=== PATIENT | female | born 1970 | race Caucasian/White ===

== ENCOUNTER 2016-09-26 08:43 | Emergency (ER) | payer BC ==
--- OUTSIDE RECORDS SUMMARY | 2016-09-26 08:59 | XMS REPORT | Continuity of Care Document ---
:1970 Author Organization [facility] ([facility]) Address [address] [place] [address] Phone [phone] Care Team Providers Name Role Phone Lore Hansen Primary Care Provider [phone] Source Comments This disclosure is being made pursuant to the Care Everywhere program, applicable federal and state laws, and may not contain all informaitonavailable regarding this patient.[facility] ([facility]) Active Allergies and Adverse Reactions No Known Allergies Current Medications Prescription Sig. Disp. Refills Start Date End Date Status citalopram 40 mg tablet Take 40 mg by mouth Active daily. ALPRAZolam 1 mg tablet Take 1 mg by mouth Active daily. Extended release beclomethasone (QVAR) 80 Use 1 Puff by Active mcg/Actuation inhaler inhalation 2 times daily. diphenhydrAMINE 25 mg Take 25 mg by mouth Active capsule at bedtime as needed. multivitamin with Take 1 Tab by mouth Active minerals tablet daily. albuterol 2.5 mg/3 mL Use 3 mL by Active inhalation solution inhalation every 4 hours as needed. 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 Social History Tobacco Use Types Packs/Day Years Used Date Former Smoker Quit: 05/26/2014 Smokeless Tobacco: Never Used Last Filed Vital Signs Vital Sign Reading Time Taken Blood Pressure 126/76 06/30/2014 10:57 AM [facility] [employer] Pulse 58 06/30/2014 10:57 AM [employer] Temperature 35.9 C (96.6 F) 06/30/2014 10:57 AM [employer] Respiratory Rate 16 08/31/2013 8:46 AM CDT Height 1.588 m (5' 2.5") 06/30/2014 10:57 AM [employer] Weight 66.724 kg (147 lb 1.6 oz) 06/30/2014 10:57 AM [employer] Body Mass Index 26.46 06/30/2014 10:57 AM [employer] Oxygen Saturation - - Plan of Care Health Maintenance Due Date Last Done Comments Hepatitis B Vaccine (1 of 3 - Primary Series) 1970 Tdap Vaccine 1981 Lipid Disorder Screening 02/09/1988 MMR Vaccine 02/09/1988 Td Vaccine 02/09/1988 Cervical Cancer Screening 02/09/2000 Mammogram 2010 Influenza Vaccine: Seasonal (#1) 12/25/2015 Results from Last 3 Months Not on file
[2016-09-26] MEDS ORDERED: ALBUTEROL SULFATE/IPRATROPIUM 3 ML NEBU IH ONE (09:01)
--- NOTE | 2016-09-26 09:07 | ERNOTE ---
Dyspnea - Date Date of Service: 09/26/16 - General Presenting Symptoms: shortness of breath Time Seen by Provider: 09/26/16 08:53 Source: patient Exam Limitations: no limitations - Immun/Allergies/Home Medications Immunizations: IMMUNIZATION HX History of Influenza Vaccine Yes Hx Pneumococcal Vaccination No Allergies/Adverse Reactions: Allergies No Known Allergies Allergy (Unverified 09/26/16 08:49) Home Medications: HOME MEDICATIONS ALPRAZolam [Xanax] 1 mg PO TID PRN 09/26/16 [Last Taken Unknown] Albuterol Sulfate [Ventolin HFA] 1 puff IH PRN PRN 09/26/16 [Last Taken Unknown] Amox Tr/Potassium Clavulanate [Augmentin 875-125 Tablet] 875 mg PO Q12H [Last Taken Unknown] Azithromycin [Zithromax] 500 mg PO NOW #6 tab 09/26/16 [Last Taken Unknown] Beclomethasone Dipropionate [Qvar] 8.7 gm IH BID 09/26/16 [Last Taken Unknown] Diclofenac Sodium [Voltaren] 75 mg PO BID 09/26/16 [Last Taken Unknown] Duloxetine HCl [Cymbalta] 60 mg PO DAILY 09/26/16 [Last Taken Unknown] Gabapentin 300 mg PO DAILY 09/26/16 [Last Taken Unknown] - History of Present Illness Narrative: Patient presents to the ED for SOB. She relates she has been sick for over 1 week with cough and SOB. She went to the walk in clinic and was started on ABx and prednisone 5 day burst but she still feels SOB. No fever. Cough with some productivity but no hemoptysis. SOB constant. CP with cough and at times without. Several hours of anterior continuous CP last night. No calf pain or leg swelling. Nothing really makes this better or worse. No ST. Severity: moderate Initiating event: Reports: unknown Frequency of episodes: Reports: no prior episodes Modifying Factors - (Improves): Reports: nothing Modifying Factors (Worsens): Denies: lying down Associated Symptoms-Dyspnea: Reports: chest pain/discomfort, cough, lightheadedness. Denies: fever/chills, leg/calf pain, ankle/leg swelling Prior Treatment: Reports: recently seen Review of Systems - Review of Systems Constitutional: Absent: fever ENT: Present: other - recent ear infection treated with Abx Respiratory: Present: See HPI Cardiology: Present: See HPI Gastrointestinal/Abdominal: Absent: abdominal pain Genitourinary: Absent: dysuria Neurological: Absent: weakness - Patient's Past Medical History Patient History - Medical: Depression, UTI'S Patient History - Cardiac/Respiratory: Asthma, Bronchitis, Pneumonia Patient History - Cancer: No Hx of Cancer Patient History - Surgical Procedures: Other Patient History - Other: None - Family History Mother Family History - Cancer: Kidney - Social History Living Situations: home Abuse History: No History of abuse Psych History: Hx of Anxiety, Hx of Depression Smoking Status: Never smoker Alcohol Use: rarely Drug Use: none - Immunizations Hx Pneumococcal Vaccination: No History of Influenza Vaccine: Yes Physical Exam - Physical Exam General Appearance: Present: alert, no apparent distress Eye Exam: Normal inspection: bilateral, PERRL: bilateral Ears, Nose, Throat: Present: normal ENT inspection, normal pharynx. Absent: nasal congestion, pharyngeal erythema, pharyngeal swelling Neck: Present: normal inspection Respiratory: Present: no respiratory distress, normal breath sounds, no accessory muscle use, lungs clear, chest tenderness, other - significant anterior chest tenderness to palpation. Left anterior chest wall. Harsh cough noted. Cardiovascular/Chest: Present: regular rate, rhythm, normal peripheral pulses Gastrointestinal/Abdominal: Present: normal bowel sounds, nontender, soft Back Exam: Present: normal range of motion Extremity Exam: Present: normal inspection, non-tender, no edema Skin Exam: Absent: skin rash ED Progress - Results and Orders Patient's Lab Results:: I have reviewed the patient's lab results. - Vital Signs Patient's Vital Signs:: I have reviewed the patient's vital signs. Vital Signs: Vital Signs 09/26/16 08:46 Temperature 36.4 C L Pulse Rate 92 Respiratory 18 Rate Blood Pressure 157/106 O2 Sat by Pulse 100 Oximetry - EKG EKG: NSR EKG read: Interp. by me EKG Comments: NSR rate 86. Non-specific ST/T wave changes. No STEMI. - X-Ray X-Ray #1 X-Ray: chest Interpretation: Reviewed by me X-ray Comments: Official radiology report reviewed. - Progress/Reassessment Chief Complaint: Dyspnea Progress Note-Subjective: 09/26/16 10:40 She now feels like she has a migraine coming on. She gets them occasionally. No suggestion of ACS, neg trop well over 12 hours of Sx. Nothing to suggest PE or aortic dissection, d-dimer in normal range, no indication for CT. I find no acute life threat. Not hypoxic, no distress. She feels it may be from the steroid as this has happened before. No clear life threat noted. She feels like going home. I discussed warning signs and reasons to return as well as the need for close f/u. Will change the Abx for better atypical coverage and get close f/u. Departure Clinical Impression: Cough, SOB (shortness of breath) - Departure Disposition: Home self-care Condition: Stable Instructions: Cough, Adult, [id number] Additional Instructions: Rest. Fluids. Call today to schedule a follow-up appointment with Dr Hansen for Friday. Stop current antibiotic and begin new antibiotic. Continue inhaler. Return for trouble breathing, fever or if your condition worsens or changes in any way. Referrals: Lore Hansen MD [Primary Care Provider] -
[2016-09-26] MEDS ORDERED: ALBUTEROL SULFATE 2.5 MG/0.5 ML VIAL.NEB IH ONE ×2 (09:10→09:26)
[2016-09-26 09:34] LABS: Hematocrit 41.5 % (37.0-47.0); Mean Cell Volume 90.6 fl (78-100); Mean Corpuscular Hemoglobin 30.6 pg (27-31); Mean Corpuscular Hgb Conc 33.7 g/dl (32-36); Mean Platelet Volume 9.8 fl (6.0-9.5); Neutrophil # 5.1 K/mm3 (1.3-6.0); Neutrophil % 54.2 % (42-75.0); Platelet Count 334 K/mm3 (150-450); Red Blood Count 4.58 M/mm3 (4.2-5.4); Red Cell Distribution Width 15.1 % (11.5-14.0); White Blood Count 9.4 K/mm3 (4.0-10.5)
[2016-09-26] MEDS ORDERED: ALPRAZolam 0.25 MG TABLET PO ONE (09:36)
[2016-09-26] MEDS ORDERED: ALPRAZolam 0.25 MG TABLET ONE (09:38)
[2016-09-26 09:54] LABS: ALT 28 U/L (19-67); AST 13 U/L (0-48); Albumin * 3.9 gm/dl (3.4-5.0); Alkaline Phosphatase * 51 U/L (50-170); Anion Gap 12.5 mmol/L (6.8-13.8); Bilirubin, Total 0.4 mg/dL (0.0-1.1); Blood Urea Nitrogen 11 mg/dL (3-23); Ca. Corrected For Albumin 9.4 mg/dL (8.4-10.2); Calcium * 9.6 mg/dL (7.9-10.9); Carbon Dioxide 27.4 mmol/L (24-32.6); Chloride 101 mmol/L (97-106); Glucose * 97 mg/dL (70-110); Potassium 3.9 mmol/L (3.4-4.6); Sodium 137 mmol/L (132-142); Total Protein 7.5 gm/dL (6.2-8.2); Troponin I Less than 0.017 ng/ml (0.00-0.10)
[2016-09-26] MEDS ORDERED: KETOROLAC TROMETHAMINE 30 MG/ML VIAL IM ONE (10:38)
[2016-09-26] MEDS ORDERED: KETOROLAC TROMETHAMINE 30 MG/ML VIAL ONE (10:52)
[2016-09-26 11:01] VITALS: BP 115/67
== END 2016-09-26 11:07 | disposition home or self-care (01) ==
LOC: ER 08:43
DX: R06.02 Shortness of breath (principal); R05 Cough; Z87.440 Personal history of urinary (tract) infections; F41.9 Anxiety disorder, unspecified; J45.909 Unspecified asthma, uncomplicated; F32.9 Major depressive disorder, single episode, unspecified

== ENCOUNTER 2017-01-04 20:57 | Emergency (ER) | payer BC ==
[2017-01-04] MEDS ORDERED: METHYLPREDNISOLONE SOD SUCC/PF 125 MG/2 ML VIAL IV ONE (21:20)
[2017-01-04] MEDS ORDERED: PROCHLORPERAZINE EDISYLATE 5 MG/ML VIAL IV ONE (21:20)
[2017-01-04] MEDS ORDERED: KETOROLAC TROMETHAMINE 30 MG/ML VIAL IV ONE (21:20)
[2017-01-04] MEDS ORDERED: diphenhydrAMINE HCL 50 MG/ML VIAL IV ONE (21:20)
--- NOTE | 2017-01-04 21:25 | ERNOTE ---
Chest Pain/Cardiac HPI Date of Service: 01/04/17 Chief Complaint: Palpitations Time Seen by Provider: 01/04/17 21:14 Source: patient Exam Limitations: no limitations Immunizations: IMMUNIZATION HX Immunizations Up to Date Yes History of Influenza Vaccine No Hx Pneumococcal Vaccination No Allergies/Adverse Reactions: Allergies No Known Allergies Allergy (Verified 01/04/17 21:07) Home Medications: HOME MEDICATIONS ALPRAZolam [Xanax] 1 mg PO TID PRN 09/26/16 [Last Taken Unknown] Albuterol Sulfate [Ventolin HFA] 1 puff IH PRN PRN 09/26/16 [Last Taken Unknown] Amox Tr/Potassium Clavulanate [Augmentin 875-125 Tablet] 875 mg PO Q12H [Last Taken Unknown] Azithromycin [Zithromax] 500 mg PO NOW #6 tab 09/26/16 [Last Taken Unknown] Beclomethasone Dipropionate [Qvar] 8.7 gm IH BID 09/26/16 [Last Taken Unknown] Diclofenac Sodium [Voltaren] 75 mg PO BID 09/26/16 [Last Taken Unknown] Duloxetine HCl [Cymbalta] 60 mg PO DAILY 09/26/16 [Last Taken Unknown] Gabapentin 300 mg PO DAILY 09/26/16 [Last Taken Unknown] Narrative: This is a 46-year-old female with a known history of migraines as well as severe anxiety. She comes to the emergency department complaining of palpitations which have been going on all week. She says that when she lays down to go to bed and she will feel her heart racing. He has not had any other symptoms with this. She actually felt good enough today that she went out and did some kayaking. She says this was moderately stressful in terms of increasing the heart rate. She did fine during this however on the way home she developed the palpitations and a severe headache retro-orbital with photophobia. She has nausea with it she says that this feels like her previous migraines. She did not hit her head. She has no pain with movement of her neck. She has not had vomiting. She has no fever. She is perimenopausal and does have hot flashes occasionally. She denies any other somatic complaints Review of Systems - Review of Systems Constitutional: Present: malaise EYE: Present: no symptoms reported ENT: Present: no symptoms reported Respiratory: Present: shortness of breath, other - patient says that she had some mild shortness of breath and used her inhaler. Absent: cough, wheezing Cardiology: Present: See HPI, palpitations. Absent: chest pain Gastrointestinal/Abdominal: Present: nausea. Absent: vomiting, diarrhea, abdominal pain, eating less, drinking less Genitourinary: Present: no symptoms reported Musculoskeletal: Present: no symptoms reported Skin: Present: no symptoms reported Neurological: Present: anxiety, headache, dizziness/light-headedness. Absent: depressed, seizure, weakness, numbness, tingling Endocrine: Present: no symptoms reported Hematologic/Lymphatic: Present: no symptoms reported Psych: Present: no symptoms reported All Other Systems: All systems neg except as marked - Patient's Past Medical History Patient History - Medical: Depression, UTI'S Patient History - Cardiac/Respiratory: Asthma, Bronchitis Patient History - Cancer: No Hx of Cancer Patient History - Surgical Procedures: Other Patient History - Other: None LMP (females 10-50): last week - Family History Mother Family History - Cancer: Kidney - Social History Living Situations: home Abuse History: No History of abuse Psych History: Hx of Anxiety, Hx of Depression Smoking Status: Former smoker Alcohol Use: rarely Drug Use: none - Immunizations Immunizations Up to Date: Yes Hx Pneumococcal Vaccination: No History of Influenza Vaccine: No Physical Exam - Physical Exam General Appearance: Present: wd/wn, alert, no apparent distress, other - laying in bed with eyes closed. He has an emesis bag at her side Head Exam: Present: normal inspection, no evidence of injury Eye Exam: Normal inspection: bilateral, PERRL: bilateral, EOMI: bilateral Ears, Nose, Throat: Present: normal ENT inspection, normal pharynx Neck: Present: normal inspection, nontender Respiratory: Present: no respiratory distress, normal breath sounds, no accessory muscle use, chest nontender, lungs clear Cardiovascular/Chest: Present: regular rate, rhythm, no murmur, normal peripheral pulses Gastrointestinal/Abdominal: Present: normal bowel sounds, nontender, nondistended, soft, no organomegaly Extremity Exam: Present: normal inspection, non-tender Neurological Exam: Present: alert, oriented, normal mood/affect, no motor/ sensory deficits Skin Exam: Present: normal color, warm/dry Lymphatic Exam: Present: no adenopathy ED Progress - Results and Orders Patient's Lab Results:: I have reviewed the patient's lab results. - Vital Signs Patient's Vital Signs:: I have reviewed the patient's vital signs. Vital Signs: Vital Signs 01/04/17 01/04/17 21:02 21:19 Temperature 36.7 C Pulse Rate 98 98 Respiratory 13 Rate Blood Pressure 168/97 O2 Sat by Pulse 99 Oximetry - EKG EKG: NSR EKG read: Interp. by me EKG Comments: EKG demonstrates sinus rhythm at 93 left axis with a QRS of 94 patient have T- wave inversion in aVL which is unchanged from previous the entire EKG is essentially identical to one dated 09/26/2016 - Progress/Reassessment Chief Complaint: Palpitations Progress:: Improved Progress Note-Subjective: 01/04/17 22:38 Patient has just returned from CAT scan and x-ray. She is now sleeping comfortably. She still is controlling her secretions. No drooling. Tongue does not look swollen now. 01/04/17 23:11 The patient has been reevaluated. She says that her symptoms of the swollen tongue and difficulty swallowing are completely gone. Her headache is much much better. I related to her that the CAT scan appears normal. EKG appears unchanged. I see no signs of acute ischemia in this patient who has had intermittent palpitations with chest tightness on and off all week. She has had strenuous activity today. I would expect if she was having acute coronary syndrome would've happened during this activity which was well over 4 hours prior to arrival and we would have some change in her troponin. She states that the primary reason for coming to the hospital is now her headache. She says it's much better after the treatment with medicines. She wants to go home and see how she does. I discussed with her the tests cannot completely exclude coronary disease. She is aware she needs to follow up with her family doctor. She will return for new or worrisome symptoms. Plan - Plan Plan: Shortly after she received the Compazine IV, she developed a sensation in her throat like she couldn't swallow and a feeling like her tongue was swollen. Indeed her tongue is mildly swollen. She is controlling her secretions at the present. Airway is intact. She is complaining of severe headache and no neck discomfort. No nuchal rigidity. No meningeal signs. She has spasms with palpation. I'm going to give her 50 g of fentanyl IV to help release some dopamine to relieve some of the dystonic type feeling she is having from the Compazine. Departure - Departure Clinical Impression: Migraine, SOB (shortness of breath), Migraine Disposition: Home self-care Condition: Stable Referrals: Lore Hansen MD [Primary Care Provider] -
[2017-01-04] MEDS ORDERED: KETOROLAC TROMETHAMINE 30 MG/ML VIAL ONE (21:26)
[2017-01-04] MEDS ORDERED: diphenhydrAMINE HCL 50 MG/ML VIAL ONE (21:26)
[2017-01-04] MEDS ORDERED: METHYLPREDNISOLONE SOD SUCC/PF 125 MG/2 ML VIAL ONE (21:27)
[2017-01-04] MEDS ORDERED: PROCHLORPERAZINE EDISYLATE 5 MG/ML VIAL ONE (21:27)
[2017-01-04 21:36] LABS: Hematocrit 38.8 % (37.0-47.0); Mean Cell Volume 92.6 fl (78-100); Mean Corpuscular Hgb Conc 33.5 g/dl (32-36); Mean Platelet Volume 9.6 fl (6.0-9.5); Neutrophil # 7.4 K/mm3 (1.3-6.0); Neutrophil % 69.3 % (42-75.0); Platelet Count 357 K/mm3 (150-450); Red Blood Count 4.19 M/mm3 (4.2-5.4); Red Cell Distribution Width 14.2 % (11.5-14.0); White Blood Count 10.6 K/mm3 (4.0-10.5)
[2017-01-04 21:54] LABS: ALT 26 U/L (19-67); AST 15 U/L (0-48); Albumin * 3.7 gm/dl (3.4-5.0); Alkaline Phosphatase * 62 U/L (50-170); Anion Gap 12.7 mmol/L (6.8-13.8); BUN/Creatinine Ratio 16.7 (9.0-21.6); Bilirubin, Total 0.3 mg/dL (0.0-1.1); Blood Urea Nitrogen 13 mg/dL (3-23); Ca. Corrected For Albumin 9.1 mg/dL (8.4-10.2); Calcium * 9.2 mg/dL (7.9-10.9); Carbon Dioxide 28.5 mmol/L (24-32.6); Chloride 103 mmol/L (97-106); Glucose * 112 mg/dL (70-110); Potassium 4.2 mmol/L (3.4-4.6); Sodium 140 mmol/L (132-142); Total Protein 7.2 gm/dL (6.2-8.2); Troponin I Less than 0.017 ng/ml (0.00-0.10)
[2017-01-04] MEDS ORDERED: fentaNYL CITRATE/PF 50 MCG/ML AMPUL IV ONE (22:12)
[2017-01-04] MEDS ORDERED: fentaNYL CITRATE/PF 50 MCG/ML AMPUL ONE (22:12)
[2017-01-04 22:39] VITALS: BP 152/84
== END 2017-01-04 23:15 | disposition home or self-care (01) ==
LOC: ER 20:57
DX: G43.909 Migraine, unspecified, not intractable, without status migrainosus (principal); R06.02 Shortness of breath